=== PATIENT | female | born 1960 | race African-American/Black ===

== ENCOUNTER → 2020-07-26 | Outpatient (CLI) | payer BC | LOC: MAMMO 09:07 | PROVIDERS: ATTEND Internal Medicine | DX: Z12.31 Encounter for screening mammogram for malignant neoplasm of breast (principal); M85.80 Other specified disorders of bone density and structure, unspecified site | CPT/HCPCS: 77067; 77080 ==

== ENCOUNTER → 2021-12-27 | Outpatient (CLI) | payer OTHER | LOC: RAD 10:06 | PROVIDERS: ATTEND Internal Medicine | DX: S43.492A Other sprain of left shoulder joint, initial encounter (principal) | CPT/HCPCS: 72110 ==

== ENCOUNTER → 2022-01-10 | Outpatient (CLI) | payer OTHER | LOC: MRI 08:52 | PROVIDERS: ATTEND Internal Medicine | DX: M75.102 Unspecified rotator cuff tear or rupture of left shoulder, not specified as traumatic (principal) ==

== ENCOUNTER → 2022-06-12 | Outpatient (CLI) | payer OTHER ==
[~2022-06-12] MED LIST: DIATRIZOATE MEGL/DIATRIZOA SOD 30 ML BTL PO ONE
[2022-06-12 12:40] LABS: CREATININE, SERUM 0.68 mg/dL (0.57-1.11)
== END ==
LOC: CT 11:35
PROVIDERS: ATTEND Internal Medicine
DX: R10.32 Left lower quadrant pain (principal)
CPT/HCPCS: 36415; 74177; 82565; 84520; Q9963